=== PATIENT | male | born 1965 | race Caucasian/White ===

== ENCOUNTER 2021-07-04 18:16 | Emergency (ER) | payer SELFPAY ==
[~2021-07-04] VITALS: Ht 170.2 cm; Wt 85.0 kg
[2021-07-04] MEDS ORDERED: IBUPROFEN 600MG TABLET PO ONE (22:30)
[2021-07-04 23:43] LABS: BASOPHILS % 0.7 % (0.0-2.0); EOSINOPHILS % 3.5 % (0.0-5.0); HEMATOCRIT. 47.9 % (42.0-52.0); HEMOGLOBIN. 16.2 g/dL (14.0-18.0); LYMPHOCYTES % 38.9 % (20.0-50.0); MEAN CORPUSCULAR HEMOGLOBIN 32.8 pg (28.0-32.0); MEAN CORPUSCULAR VOLUME 97.2 fL (80.0-94.0); MEAN PLATELET VOLUME 8.8 fl (7.4-10.4); MONOCYTES % 10.8 % (2.0-8.0); NEUTROPHILS % 46.1 % (40.0-76.0); PLATELET 163 x1000/uL (130-400); RED BLOOD CELL COUNT 4.93 mill/uL (4.7-6.1); RED CELL DISTRIBUTION WIDTH 12.8 % (11.6-14.6)
[2021-07-04] MEDS ORDERED: AMLODIPINE 10MG TABLET PO ONE (23:45)
[2021-07-04 23:54] LABS: CHLORIDE 108 mEq/L (98-107)
[2021-07-05] MEDS ORDERED: IBUP-2029 MT (00:18)
[2021-07-05 00:46] LABS: CLARITY URINE CLEAR (CLEAR); COLOR URINE YELLOW (YELLOW); KETONES URINE NEGATIVE (NEGATIVE); LEUKOCYTE ESTERASE URINE NEGATIVE (NEGATIVE); NITRITE URINE NEGATIVE (NEGATIVE); OCCULT BLOOD URINE NEGATIVE (NEGATIVE); PROTEIN URINE NEGATIVE (NEGATIVE); SPECIFIC GRAVITY URINE 1.016 (1.005-1.030); UROBILINOGEN URINE 0.2 E.U./dL (0.2-1.0)
[2021-07-05 02:00] VITALS: BP 188/126
== END 2021-07-05 02:40 | disposition home or self-care (01) ==
LOC: ER 18:16
DX: R10.30 Lower abdominal pain, unspecified (principal); K50.00 Crohn's disease of small intestine without complications; N20.0 Calculus of kidney; K40.20 Bilateral inguinal hernia, without obstruction or gangrene, not specified as recurrent; K57.90 Diverticulosis of intestine, part unspecified, without perforation or abscess without bleeding; J84.10 Pulmonary fibrosis, unspecified; K75.3 Granulomatous hepatitis, not elsewhere classified; D73.89 Other diseases of spleen
CPT/HCPCS: 36415; 71045; 74176; 80053; 81003; 85025; 99285

== ENCOUNTER 2024-02-02 15:57 | Emergency (ER) | payer SELFPAY ==
[~2024-02-02] VITALS: Ht 177.8 cm; Wt 110.0 kg
[~2024-02-02 15:57] MED LIST: IBUP-2029 MT
[2024-02-02 16:31] VITALS: TEMP 98.5; O2SAT 96
[2024-02-02 16:40] LABS: BASOPHILS % 0.4 % (0.0-2.0); EOSINOPHILS % 0.1 % (0.0-5.0); HEMATOCRIT. 49.6 % (42.0-52.0); HEMOGLOBIN. 16.8 g/dL (14.0-18.0); LYMPHOCYTES % 17.3 % (20.0-50.0); MEAN CORPUSCULAR HEMOGLOBIN 32.5 pg (28.0-32.0); MEAN CORPUSCULAR HGB CONC 33.8 g/dL (31.0-37.0); MEAN CORPUSCULAR VOLUME 96.1 fL (80.0-94.0); MEAN PLATELET VOLUME 9.2 fl (7.4-10.4); MONOCYTES % 5.2 % (2.0-8.0); PLATELET 157 x1000/uL (130-400); RED BLOOD CELL COUNT 5.16 mill/uL (4.7-6.1)
[2024-02-02 16:44] LABS: CARBON DIOXIDE 22 mEq/L (21-32); CHLORIDE 108 mEq/L (98-107); POTASSIUM 3.6 mEq/L (3.5-5.1); SODIUM 137 mEq/L (136-145)
[2024-02-02 16:45] LABS: CALCIUM 9.3 mg/dL (8.7-10.4)
[2024-02-02 16:49] LABS: CREATININE 0.8 mg/dL (0.6-1.3)
[2024-02-02 16:50] LABS: GLUCOSE 118 mg/dL (70-105); UREA NITROGEN BLOOD 14 mg/dL (9-23)
[2024-02-02 16:51] LABS: ALANINE AMINOTRANSFERASE 50 IU/L (10-49)
[2024-02-02 16:52] LABS: ALBUMIN 4.8 g/dL (3.2-4.8); ASPARTATE AMINOTRANSFERASE 30 IU/L (<34); BILIRUBIN DIRECT 0.5 mg/dL (<=3.0); BILIRUBIN TOTAL 1.4 mg/dL (0.1-1.0); PROTEIN TOTAL 7.4 g/dL (6.0-8.3)
[2024-02-02 20:19] LABS: CLARITY URINE CLEAR (CLEAR); COLOR URINE DARK YELLOW (YELLOW); GLUCOSE URINE NEGATIVE (NEGATIVE); KETONES URINE NEGATIVE (NEGATIVE); LEUKOCYTE ESTERASE URINE NEGATIVE (NEGATIVE); NITRITE URINE NEGATIVE (NEGATIVE); OCCULT BLOOD URINE NEGATIVE (NEGATIVE); PH URINE 5.5 (4.5-8.0); PROTEIN URINE 1+ (NEGATIVE); SPECIFIC GRAVITY URINE 1.039 (1.005-1.030)
[2024-02-02 20:39] LABS: BACTERIA URINE 1+; RBC URINE NONE SEEN /hpf (0-2); SQUAMOUS EPITHELIAL CELL URINE RARE /lpf (RARE/1+); WBC URINE 0-2 /hpf (0-2)
[2024-02-02 20:41] LABS: *AMPHETAMINES SCREEN URINE NEGATIVE (NEGATIVE); *BENZODIAZEPINES SCREEN URINE NEGATIVE (NEGATIVE)
[2024-02-02 20:42] LABS: *BARBITURATES SCREEN URINE NEGATIVE (NEGATIVE); CANNABINOID URINE SCREEN NEGATIVE (NEGATIVE); ECSTASY MDMA SCREEN URINE NEGATIVE (NEGATIVE); METHADONE URINE SCREEN NEGATIVE (NEGATIVE); OPIATES URINE SCREEN NEGATIVE (NEGATIVE); PHENCYCLIDINE URINE SCREEN NEGATIVE (NEGATIVE)
[2024-02-02 20:53] LABS: *COCAINE SCREEN URINE NEGATIVE (NEGATIVE)
[2024-02-02] MEDS ORDERED: ONDA4TAB50 MT (22:30)
[2024-02-02] MEDS ORDERED: TOPUD PO (22:30)
[2024-02-02] MEDS ORDERED: LOPE2CAP MT (22:30)
[2024-02-02] MEDS ORDERED: LACT1CAP78 MT (22:30)
[2024-02-02] MEDS ORDERED: FAMO-135 MT (22:30)
[2024-02-02] MEDS: ONDANSETRON 4MG ODT PO ONE (22:44)
[2024-02-02] MEDS: ACETAMINOPHEN 325MG TABLET PO ONE (22:45)
[2024-02-02] MEDS: LOPERAMIDE HCL 2MG CAPSULE PO ONE (22:46)
[2024-02-02] MEDS: PANTOPRAZOLE 40MG DR TABLET PO ONE (22:47)
[2024-02-02 22:59] VITALS: BP 143/93; PULSE 61; RESP 16
== END 2024-02-02 23:01 | disposition home or self-care (01) ==
LOC: ER 15:57
DX: K52.9 Noninfective gastroenteritis and colitis, unspecified (principal); I10 Essential (primary) hypertension; Z79.899 Other long term (current) drug therapy
CPT/HCPCS: 80076; 80305; 80048; 81003; 80320; 85025; 36415; 74176; 99284; Q0162; G0480